=== PATIENT | male | born 1980 | race Caucasian/White ===

== ENCOUNTER 2016-11-17 21:26 | Emergency (ER) | payer OTHER ==
[~2016-11-17] VITALS: Ht 165.1 cm; Wt 77.4 kg
[~2016-11-17 21:26] MED LIST: ADVIL200 MG PO; AMOX TR-K CLV1 EAC4 PO; CLEOCIN300 MG PO; MOTRIN600 MG PO; NORCO 5/3251 TABLET PO; OXYCODONE HCL5 MG PO; TRAMADOL HCL50 MG PO
[2016-11-17 21:28] VITALS: BP 104/66
[2016-11-17] MEDS ORDERED: NORCO 5/3251 TABLET PO (23:50)
[2016-11-17] MEDS ORDERED: ZOFRAN4 MG PO (23:50)
[2016-11-17] MEDS ORDERED: PEN-VEE K,VEET500 MG PO (23:50)
== END 2016-11-18 00:06 | disposition home or self-care (01) ==
LOC: EME 21:26
DX: K08.89 Other specified disorders of teeth and supporting structures (principal); F17.200 Nicotine dependence, unspecified, uncomplicated
CPT/HCPCS: 99281; 99283

== ENCOUNTER 2017-06-11 23:06 | Emergency (ER) | payer OTHER ==
[~2017-06-11] VITALS: Ht 165.1 cm; Wt 81.3 kg
[~2017-06-11 23:06] MED LIST changes: +PEN-VEE K,VEET500 MG PO; +ZOFRAN4 MG PO
[2017-06-12] MEDS ORDERED: AUGMENTIN875 MG PO (00:50)
[2017-06-12] MEDS ORDERED: PERCOCET 5/31 TABLET PO (00:50)
[2017-06-12] MEDS ORDERED: ROXICODONE5 MG PO (01:11)
[2017-06-12 01:25] VITALS: BP 114/83
== END 2017-06-12 01:25 | disposition home or self-care (01) ==
LOC: EME 23:06
PROC: 0C96XZZ Drainage of Lower Gingiva, External Approach (ICD-10-PCS; principal; 2017-06-12)
DX: K04.7 Periapical abscess without sinus (principal); F17.200 Nicotine dependence, unspecified, uncomplicated
CPT/HCPCS: 99281; 99283

== ENCOUNTER 2017-12-26 18:37 | Emergency (ER) | payer OTHER ==
[~2017-12-26] VITALS: Ht 165.1 cm; Wt 78.2 kg
[~2017-12-26 18:37] MED LIST changes: +AUGMENTIN875 MG PO; +PERCOCET 5/31 TABLET PO; +ROXICODONE5 MG PO
[2017-12-26 20:42] LABS: HEMOGLOBIN 15.3 G/DL (12.5-16.6); MCH 31.1 PG (29.0-34.0); MCHC 35.6 G/DL (30.0-36.0); MCV 87.4 FL (86-99); RBC DIS.WIDTH-CV 12.9 % (11.8-14.6); RED BLOOD COUNT 4.92 M/uL (4.00-5.50); WHITE BLOOD COUNT 13.9 K/uL (4.1-10.2)
[2017-12-26 20:54] LABS: CHLORIDE 101 mEq/L (99-109); POTASSIUM 4.1 mEq/L (3.7-5.4); SODIUM 137 mEq/L (136-147)
[2017-12-26 20:56] LABS: GLUCOSE 84 mg/dL (70-99)
[2017-12-26 20:59] LABS: CREATININE 0.8 mg/dL (0.6-1.3); GFR ESTIMATE (CALCULATED) > 59 mL/min/ (58.99-99999)
[2017-12-26 21:00] LABS: UREA NITROGEN (BUN) 10 mg/dL (9-23)
[2017-12-26] MEDS ORDERED: BACTRIM,SEPT1 TABLET PO (22:00)
[2017-12-26] MEDS ORDERED: KEFLEX500 MG PO (22:00)
[2017-12-26 22:16] VITALS: BP 127/72
[2017-12-26 22:17] LABS: PLAT.SUFFICIENCY ADEQUATE
[2017-12-26 22:19] LABS: PLATELET COUNT 363 K/uL (156-360)
== END 2017-12-26 22:53 | disposition home or self-care (01) ==
LOC: EME 18:37
PROVIDERS: Physician Assistant Medical
PROC: 0H9DXZZ Drainage of Right Lower Arm Skin, External Approach (ICD-10-PCS; principal; 2017-12-26)
DX: L02.413 Cutaneous abscess of right upper limb (principal); F17.200 Nicotine dependence, unspecified, uncomplicated
CPT/HCPCS: 76882; 80048; 85027; 99281; 99284